=== PATIENT | male | born 1990 | race American Indian/Alaskan Native ===

== ENCOUNTER 2019-05-23 02:18 | Inpatient (IN) | payer OTHER ==
[2019-05-23] MEDS ORDERED: SODIUM CHLORIDE 0.9% 1000 ML 1,000 ML ONE (02:37)
[2019-05-23] MEDS ORDERED: SODIUM CHLORIDE 0.9% 1000 ML 1,000 ML IV ONE (03:01)
[2019-05-23] MEDS ORDERED: LORazepam 2 MG/ML VIAL IV STA (03:16)
[2019-05-23] MEDS ORDERED: ASPIRIN EC 325 MG TAB PO ONE (03:18)
--- NOTE | 2019-05-23 03:29 | Emergency Department Report ---
ED General Adult HPI - General Chief complaint: Overdose Stated complaint: POSS OVERDOSE Time Seen by Provider: 05/23/19 02:57 Source: patient, family Mode of arrival: Wheelchair Limitations: No Limitations - History of Present Illness Initial comments: 28-year-old male with no past medical history admits to doing meth as well as cocaine over the past 2 days. Patient states that he is having auditory hallucinations telling him that the grim reaper is trying to choke him. Patient however denies any suicidal or homicidal. Patient complains of chest pain that began while here in emergency department. Patient denies any radiation of this chest pain. Patient denies any heroin use. Patient denies any prior psychiatric history. Eyes any IV drug use and patient denies any fever. Patient states that his last use of cocaine/meth was at 12 am. - Related Data Allergies Allergy/AdvReac Type Severity Reaction Status Date / Time No Known Allergies Allergy Verified 05/23/19 03:07 ED Review of Systems ROS: Stated complaint: POSS OVERDOSE Other details as noted in HPI Constitutional: denies: chills, fever Eyes: denies: eye pain, eye discharge, vision change ENT: denies: ear pain, throat pain Respiratory: denies: cough, shortness of breath, wheezing Cardiovascular: chest pain Endocrine: no symptoms reported Gastrointestinal: denies: abdominal pain, nausea, diarrhea Genitourinary: denies: urgency, dysuria Musculoskeletal: denies: back pain, joint swelling, arthralgia Skin: denies: rash, lesions Neurological: denies: headache, weakness, paresthesias Psychiatric: auditory hallucinations Hematological/Lymphatic: denies: easy bleeding, easy bruising ED Past Medical Hx - Past Medical History Previous Medical History?: No - Surgical History Past Surgical History?: No - Social History Smoking Status: Current Every Day Smoker Substance Use Type: Alcohol, Cocaine, Marijuana, Methamphetamines ED Physical Exam - General Limitations: No Limitations General appearance: alert, other (animated; uncomfortable) - Head Head exam: Present: atraumatic, normocephalic - Eye Eye exam: Present: normal appearance - ENT ENT exam: Present: mucous membranes moist - Neck Neck exam: Present: normal inspection - Respiratory Respiratory exam: Present: normal lung sounds bilaterally. Absent: respiratory distress - Cardiovascular Cardiovascular Exam: Present: regular rate, normal rhythm. Absent: systolic murmur, diastolic murmur, rubs, gallop - GI/Abdominal GI/Abdominal exam: Present: soft, normal bowel sounds. Absent: guarding, rebound - Rectal Rectal exam: Present: deferred - Extremities Exam Extremities exam: Present: normal inspection - Back Exam Back exam: Present: normal inspection - Neurological Exam Neurological exam: Present: alert, oriented X3 - Psychiatric Psychiatric exam: Present: other (animated) - Skin Skin exam: Present: warm, dry, intact, normal color. Absent: rash ED Course Vital Signs 05/23/19 05/23/19 05/23/19 02:30 02:32 02:45 Temperature 97.8 F Pulse Rate 103 H 68 Respiratory 25 H 21 19 Rate Blood Pressure 156/95 Blood Pressure 152/98 [Right] O2 Sat by Pulse 98 99 Oximetry 05/23/19 05/23/19 05/23/19 03:00 03:16 03:30 Temperature Pulse Rate 69 63 63 Respiratory 23 20 16 Rate Blood Pressure 152/83 162/92 162/92 Blood Pressure [Right] O2 Sat by Pulse 100 100 100 Oximetry 05/23/19 05/23/19 05/23/19 03:46 04:00 04:16 Temperature Pulse Rate 63 61 69 Respiratory 20 15 17 Rate Blood Pressure 169/99 169/99 169/99 Blood Pressure [Right] O2 Sat by Pulse 98 100 Oximetry 05/23/19 05/23/19 05/23/19 04:30 04:46 05:00 Temperature Pulse Rate 79 89 76 Respiratory 24 28 H Rate Blood Pressure 169/99 126/63 Blood Pressure [Right] O2 Sat by Pulse Oximetry 05/23/19 05:46 Temperature Pulse Rate Respiratory Rate Blood Pressure 124/71 Blood Pressure [Right] O2 Sat by Pulse Oximetry ED Medical Decision Making - Lab Data Result diagrams: 05/23/19 04:15 05/23/19 04:15 - EKG Data EKG shows normal: sinus rhythm Rate: normal - EKG Data Interpretation: no acute changes - Medical Decision Making Patient received IV fluids and Ativan IV while here in emergency department. Patient also received aspirin therapy by mouth while in emergency department. With complaint of chest pain and recent ingestion of both cocaine and methamphetamine patient to be admitted to the hospitalist service for continued management and treatment. - Differential Diagnosis STEMI; NSTEMI; Dehydration; Anemia; Polysubstance Abuse Critical care attestation.: If time is entered above; I have spent that time in minutes in the direct care of this critically ill patient, excluding procedure time. ED Disposition Clinical Impression: Chest pain, Cocaine abuse, Methamphetamine abuse Disposition: OP ADMIT IP TO THIS HOSP Is pt being admited?: Yes Does the pt Need Aspirin: No (patient has already received Aspirin therapy in the ER) Condition: Stable Instructions: Chest Pain (ED) Referrals: PRIMARY CARE, [Primary Care Provider] - 3-5 Days Time of Disposition: 06:37 Print Language: MACEDONIAN
--- NOTE | 2019-05-23 03:36 | XRay Report ---
CHEST 1 VIEW INDICATION / CLINICAL INFORMATION: chset pain. COMPARISON: None available. FINDINGS: SUPPORT DEVICES: None. HEART / MEDIASTINUM: No significant abnormality. LUNGS / PLEURA: No significant pulmonary or pleural abnormality. No pneumothorax. ADDITIONAL FINDINGS: No significant additional findings. IMPRESSION: 1. No acute findings. Signer Name: Maribel Garrett MD Signed: 05/23/2019 3:32 AM Workstation Name: [id number]
[2019-05-23 04:42] LABS: Basophils % (Auto) 0.6 % (0.0-1.8); Eosinophils # (Auto) 0.1 K/mm3 (0.0-0.4); Eosinophils % (Auto) 1.4 % (0.0-4.3); Hemoglobin 14.8 gm/dl (11.8-15.2); Lymphocytes # (Auto) 1.9 K/mm3 (1.2-5.4); Lymphocytes % (Auto) 20.6 % (13.4-35.0); Mean Corpuscular HGB Conc 32 % (32-34); Mean Corpuscular Volume 85 fl (84-94); Monocytes # (Auto) 0.9 K/mm3 (0.0-0.8); Monocytes % (Auto) 10.3 % (0.0-7.3); Platelet Count 253 K/mm3 (140-440); Red Blood Count 5.42 M/mm3 (3.65-5.03); Red Cell Distribution Width 14.7 % (13.2-15.2)
[2019-05-23 04:54] LABS: Benzodiazepines Screen,Urine PRESUMPTIVE NEGATIVE; Methadone Screen,Urine PRESUMPTIVE NEGATIVE; Opiate Screen,Urine PRESUMPTIVE NEGATIVE
[2019-05-23 04:57] LABS: Alanine Aminotransferase 17 units/L (7-56); Albumin 4.8 g/dL (3.9-5); BUN/Creatinine Ratio 13; Blood Urea Nitrogen 12 mg/dL (9-20); Calcium 9.5 mg/dL (8.4-10.2); Hemolysis Index 5
[2019-05-23 05:09] LABS: Amphetamine Screen,Urine PRESUMPTIVE POSITIVE; Cannabinoid Screen,Urine PRESUMPTIVE POSITIVE; Cocaine Screen,Urine PRESUMPTIVE POSITIVE
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
--- NOTE | 2019-05-23 09:03 | History and Physical Report ---
History of Present Illness Date of examination: 05/23/19 Date of admission: 05/23/19 06:38 Chief complaint: alteration of behaviour and chest pain History of present illness: 28-year-old male with no past medical history admits to doing methadone as well as cocaine over the past 2 days. Patient states that he is having auditory hallucinations telling him that the grim reaper is trying to choke him. Patient however denies any suicidal or homicidal. Patient complained of chest pain that began while here in emergency department w/o any radiation of this chest pain. Patient denies any heroin use. Patient denies any prior psychiatric history. Family was brought to the emergency by the family members. Patient is being admitted for further evaluation and management. He currently denies any chest pain, cardiac enzyme in the ER was negative and chest x-ray did not show any infiltrates. Review of System: Constitutional: no fever, no chills, no weight loss Ears, eyes, nose, mouth and throat: no nasal congestion, no nasal discharge, no sinus pressure, no vision change, no red eye. Neck: No neck pain or rigidity. Cardiovascular: No chest pain, no orthopnea, no palpitations, no leg swelling Respiratory: No shortness of breath, no cough, no congestion, no wheezing Gastrointestinal: no abdominal pain, no nausea, no vomiting Genitourinary : no dysuria, no hematuria Musculoskeletal: no joint swelling or muscle ache Integumentary: no rash, no pruritis Neurological: no parathesias, no numbness, no tingling Endocrine: no cold or heat intolerance, no polyuria or polydipsia Hematologic/Lymphatic: no easy bruising, no easy bleeding, no gland swelling Allergic/Immunologic: no urticaria, no angioedema. Past History Past Medical History: No medical history Past Surgical History: No surgical history Social history: smoking, alcohol abuse, other (cocaine abuse) Family history: no significant family history Medications and Allergies Allergies Allergy/AdvReac Type Severity Reaction Status Date / Time No Known Allergies Allergy Verified 05/23/19 03:07 Home Medications Medication Instructions Recorded Confirmed Last Taken Type hydrOXYzine PAMOATE [Vistaril] 25 mg PO BID #14 capsule 05/25/19 Unknown Rx risperiDONE [RisperDAL] 1 mg PO QHS #7 tablet 05/25/19 Unknown Rx Exam - Constitutional Vitals: Temp Pulse Resp BP Pulse Ox 97.8 F 75 18 133/78 100 05/23/19 02:32 05/23/19 07:52 05/23/19 07:52 05/23/19 07:52 05/23/19 04:00 General appearance: Present: well-nourished, other (appears drowsy) - EENT Eyes: Present: PERRL ENT: hearing intact, clear oral mucosa - Neck Neck: Present: supple, normal ROM - Respiratory Respiratory effort: normal Respiratory: bilateral: CTA - Cardiovascular Heart Sounds: Present: S1 & S2. Absent: rub, click - Extremities Extremities: pulses symmetrical, No edema Peripheral Pulses: within normal limits - Abdominal General gastrointestinal: Present: soft, non-tender, non-distended, normal bowel sounds - Integumentary Integumentary: Present: clear, warm, dry - Musculoskeletal Musculoskeletal: gait normal, strength equal bilaterally - Psychiatric Psychiatric: no appropriate mood/affect, no intact judgment & insight, cooperative - Neurologic Neurologic: CNII-XII intact, moves all extremities Results - Labs CBC & Chem 7: 05/23/19 04:15 05/23/19 04:15 Labs: Abnormal lab results 05/23/19 05/23/19 05/23/19 Range/Units 04:15 04:15 04:15 RBC 5.42 H (3.65-5.03) M/mm3 Hct 46.0 H (35.5-45.6) % MCH 27 L (28-32) pg [place] % (Auto) 10.3 H (0.0-7.3) % [place] # 0.9 H (0.0-0.8) K/mm3 Potassium 3.4 L (3.6-5.0) mmol/L Total Creatine Kinase (55-170) units/L Salicylates < 0.3 L (2.8-20.0) mg/dL Acetaminophen (10.0-30.0) ug/mL 05/23/19 05/23/19 Range/Units 04:15 04:15 RBC (3.65-5.03) M/mm3 Hct (35.5-45.6) % MCH (28-32) pg [place] % (Auto) (0.0-7.3) % [place] # (0.0-0.8) K/mm3 Potassium (3.6-5.0) mmol/L Total Creatine Kinase 293 H (55-170) units/L Salicylates (2.8-20.0) mg/dL Acetaminophen < 5.0 L (10.0-30.0) ug/mL - Imaging and Cardiology Chest x-ray: report reviewed Assessment and Plan Acute psychosis - psych consulted, likely from substance abuse - xanax as needed Cocaine/Marijuana/Methamphetamine/ Alcohol Use Disorder - monitor clinically, placed on CIWA protocol Chest pain, atypical - likely from cocaine, monitor with serial CE, serial EKG DVT Px - SCD
[2019-05-23] MEDS ORDERED: MORPHINE 2 MG/1 ML INJ IV ONE (11:43)
[2019-05-23] MEDS ORDERED: LORazepam 2 MG/ML VIAL IV ONE (11:44)
[2019-05-23] MEDS ORDERED: hydrALAZINE 20 MG/1 ML INJ IV PRN (14:04)
[2019-05-23] MEDS ORDERED: LORazepam 2 MG/ML VIAL IV PRN (14:30)
[2019-05-23] MEDS ORDERED: ONDANSETRON 4 MG/2 ML INJ IV PRN (14:30)
[2019-05-23] MEDS ORDERED: ACETAMINOPHEN 325 MG TAB PO PRN (14:30)
[2019-05-23] MEDS: ALPRAZolam 0.5 MG TAB PO PRN ×2 (17:36→21:55)
[2019-05-23] MEDS: FAMOTIDINE 10 MG TAB PO SCH (21:54)
[2019-05-23] MEDS: DOCUSATE SODIUM 100 MG CAP PO SCH (21:54)
[2019-05-24] MEDS: ALPRAZolam 0.5 MG TAB PO PRN (05:41)
[2019-05-24] MEDS: FAMOTIDINE 10 MG TAB PO SCH ×2 (10:19→21:38)
[2019-05-24] MEDS: DOCUSATE SODIUM 100 MG CAP PO SCH ×2 (10:19→21:38)
--- NOTE | 2019-05-24 13:49 | Progress Note ---
Subjective - Reason for Consult Consult date: 05/24/19 Reason for consult: Psychiatric Follow-up Evaluation - Chief Complaint Chief complaint: " I feel better than yesterday" Patient is a 28-year-old male with no past medical history. He is here due to methamphetamine and cocaine use x 2 days. Today the patient is calm and cooperative during the assessment. He reports fair appetite and sleep. He denies SI/HI, A/VH's, and delusions. He later endorses intermittent psychosis at night but could not further explain. Mental Status Exam - Vital signs Last Vital Signs Temp 97.7 F 05/24/19 11:25 Pulse 85 05/24/19 11:25 Resp 18 05/24/19 11:25 BP 107/67 05/24/19 11:25 Pulse Ox 99 05/24/19 11:25 - Exam Narrative exam: Mental Status Exam Appearance: cooperative, poorly groomed Behavior: intermittent eye contact Speech: regular rate with and tone Mood: "I feel better than yesterday" Affect: congruent to mood Thought Process: impoverished, circumstantial Thought Content: no gestures SI/HI's, delusions; intermittent A/VH's Cognition: A/O x 3 Insight: variable Judgment: variable Assessment and Plan Impression: Cocaine/Marijuana/Methamphetamine/ Alcohol Use Disorder. Drug Induced Psychosis. Today the patient is cooperative but anxious during the assessment. He endorses intermittent auditory hallucinations. Recommendation/Plan: 1. Will reassess in 24 hours. 2. Recommend [facility] protocol for possible alcohol withdrawals. 3. Start Risperdal 1mg po QHS psychosis/mood, Vistaril 25mg po BID anxiety. Discussed metabolic/anti-cholinergic side effects. Patient verbalizes understanding. Disposition: Will reassess in 24 hours for medication management. Will staff with Dr. Lucian Langston.
--- NOTE | 2019-05-24 15:02 | Progress Note ---
Assessment and Plan Acute psychosis - psych consulted, likely from substance abuse - cont he xanax as needed Cocaine/Marijuana/Methamphetamine/ Alcohol Use Disorder - monitor clinically, CIWA protocol Chest pain, atypical - likely from cocaine, serial CE, serial EKG DVT Px - SCD Disposition: Appears more calm and quiet today, but still remains intermittently psychotic. Fluid for further psychiatric recommendation for discharge planning Subjective Date of service: 05/24/19 Interval history: Patient seen and examined. Medical records and medication list reviewed. No acute event overnight noted by the RN. Patient denies any chest pain or difficulty breathing. Patient is tolerating diet. He reports fair appetite and sleep. He denies SI/HI, A/VH's, and delusions. He later endorses intermittent psychosis at night but could not further explain. Discussed plan of care at bedside with patient. Objective - Constitutional Vitals: Vital Signs - 12hr 05/24/19 05/24/19 05/24/19 03:35 03:56 08:13 Temperature 97.9 F 98.1 F Pulse Rate 95 H 73 58 L Respiratory 18 18 Rate Blood Pressure 141/77 88/48 O2 Sat by Pulse 99 99 Oximetry 05/24/19 05/24/19 05/24/19 08:14 11:00 11:25 Temperature 97.7 F Pulse Rate 85 85 Respiratory 18 Rate Blood Pressure 81/57 107/67 O2 Sat by Pulse 99 Oximetry General appearance: Present: no acute distress, well-nourished - EENT Eyes: PERRL, EOM intact ENT: hearing intact, clear oral mucosa Ears: bilateral: normal - Neck Neck: supple, normal ROM - Respiratory Respiratory effort: normal Respiratory: bilateral: CTA - Cardiovascular Rhythm: regular Heart Sounds: Present: S1 & S2. Absent: gallop, rub Extremities: pulses intact, No edema, normal color, Full ROM - Gastrointestinal General gastrointestinal: Present: soft, non-tender, non-distended, normal bowel sounds - Integumentary Integumentary: clear, warm, dry - Musculoskeletal Musculoskeletal: 1, strength equal bilaterally - Neurologic Neurologic: moves all extremities - Psychiatric Psychiatric: memory intact, appropriate mood/affect, intact judgment & insight - Labs CBC & Chem 7: 05/23/19 04:15 05/23/19 04:15
[2019-05-24] MEDS: hydrOXYzine PAMOATE 25 MG CAP PO SCH (21:38)
[2019-05-24] MEDS ORDERED: risperiDONE 1 MG TAB PO SCH (22:00)
[2019-05-25] MEDS: hydrOXYzine PAMOATE 25 MG CAP PO SCH (10:06)
[2019-05-25] MEDS: FAMOTIDINE 10 MG TAB PO SCH (10:06)
[2019-05-25] MEDS: DOCUSATE SODIUM 100 MG CAP PO SCH (10:06)
--- NOTE | 2019-05-25 13:43 | Progress Note ---
Subjective - Reason for Consult Consult date: 05/25/19 Reason for consult: Psychiatric Follow-up Evaluation - Chief Complaint Chief complaint: " I feel good" Patient is a 28-year-old male with no past medical history. He is here due to methamphetamine and cocaine use x 2 days. Today the patient is calm and cooperative during the assessment. Patient is asleep in the room. He reports good appetite and sleep. He denies SI/HI's, A/VH's, and delusions. Patient reports that he has been compliant with medication. He believes that the medication is partially effective. He denies any side effects noted. Mental Status Exam - Vital signs Last Vital Signs Temp 98.1 F 05/25/19 04:14 Pulse 85 05/25/19 08:52 Resp 16 05/25/19 08:43 BP 109/71 05/25/19 08:52 Pulse Ox 100 05/25/19 08:52 - Exam Narrative exam: Mental Status Exam Appearance: calm, cooperative Behavior: intermittent eye contact Speech: regular rate with and tone Mood: "I feel good" Affect: congruent to mood Thought Process: organized Thought Content: no gestures SI/HI's, A/VH's delusions Cognition: A/O x 3 Insight: variable Judgment: variable Assessment and Plan Impression: Cocaine/Marijuana/Methamphetamine/ Alcohol Use Disorder. Drug Induced Psychosis. Today the patient is calm and cooperative during the assessment. He denies SI/HI's, A/VH's, and delusions. Recommendation/Plan: 1. Will reassess in 24 hours. 2. Recommend [facility] protocol for possible alcohol withdrawals. 3. Continue Risperdal 1mg po QHS psychosis/mood, Vistaril 25mg po BID anxiety. Discussed metabolic/anti-cholinergic side effects. Patient verbalizes understanding. Disposition: Will reassess in 24 hours for medication management. Patient informed to follow-up at the [facility] upon discharge for psychiatric services. Patient verbalizes understanding. Will staff with Dr. Lucian Langston.
--- NOTE | 2019-05-25 16:09 | Discharge Summary ---
Providers - Providers Date of Admission: 05/23/19 06:38 Date of discharge: 05/25/19 Attending physician: MARIBEL MORALES 05/23/19 14:03 Consult to Mental Health [CONS] Routine Reason For Exam: acute psychosis Place consult to:: mental health Notified:: yes Primary care physician: [employer] Hospitalization Condition: Stable Pertinent studies: Chest x-ray: No infiltrates Hospital course: 28-year-old male with no past medical history who was doing methadone as well as cocaine over the past 2 days presented with auditory hallucinations and chest pain. Patient denied any prior psychiatric history. Patient was brought to the emergency by the family members. His UDS was positive for methamphetamine, cocaine and marijuana. Patient was admitted for further evaluation and management. His chest pain resolved, cardiac enzyme in the ER was negative and chest x-ray did not show any infiltrates. Patient was placed on 1013, psych was consulted. Patient improved with medical management,. Psych recommended outpatient follow-up, patient was discharged home in stable condition. Family and patient was counseled for outpatient drug rehabilitation. Discharge Diagnosis: Acute psychosis - drug induced, resolved - psych consulted, likely from substance abuse - given xanax as needed Cocaine/Marijuana/Methamphetamine/ Alcohol Use Disorder - monitored clinically, placed on CIWA protocol Chest pain, atypical - likely from cocaine, negative serial CE, serial EKG DVT Px - SCD Disposition: home with outpt f/u Disposition: DC-01 TO HOME OR SELFCARE Time spent for discharge: 34 minutes Core Measure Documentation - Palliative Care Palliative Care/ Comfort Measures: Not Applicable - Core Measures Any of the following diagnoses?: none Exam - Constitutional Vitals: Temp Pulse Resp BP Pulse Ox 98.1 F 55 L 16 102/59 96 05/25/19 04:14 05/25/19 13:45 05/25/19 08:43 05/25/19 13:45 05/25/19 13:45 General appearance: Present: no acute distress, well-nourished - EENT Eyes: Present: PERRL ENT: hearing intact, clear oral mucosa - Neck Neck: Present: supple, normal ROM - Respiratory Respiratory effort: normal Respiratory: bilateral: CTA - Cardiovascular Heart Sounds: Present: S1 & S2. Absent: rub, click - Extremities Extremities: pulses symmetrical, No edema Peripheral Pulses: within normal limits - Abdominal General gastrointestinal: Present: soft, non-tender, non-distended, normal bowel sounds - Integumentary Integumentary: Present: clear, warm, dry - Musculoskeletal Musculoskeletal: gait normal, strength equal bilaterally - Psychiatric Psychiatric: appropriate mood/affect, intact judgment & insight - Neurologic Neurologic: CNII-XII intact, moves all extremities Plan Activity: advance as tolerated Weight Bearing Status: Weight Bear as Tolerated Diet: low fat, low salt Special Instructions: follow up in rehab (outpatient alcohol and drug rehabilitation program) Additional Instructions: f/u at outpatient alcohol and drug rehabilitation program. Follow up with: PRIMARY CARE, [Primary Care Provider] - 3-5 Days BREANNA BARLOW MD [Staff Physician] - 7 Days Prescriptions: risperiDONE [RisperDAL] 1 mg PO QHS #7 tablet hydrOXYzine PAMOATE [Vistaril] 25 mg PO BID #14 capsule
[2019-05-25 17:53] VITALS: BP 106/66
== END 2019-05-25 19:07 | disposition home or self-care (01) | DRG 897 ==
LOC: ED 02:18 → 4A 06:38
PROVIDERS: ADMIT Internal Medicine Geriatric Medicine; ATTEND Internal Medicine
DX: F19.159 Other psychoactive substance abuse with psychoactive substance-induced psychotic disorder, unspecified (principal); R07.89 Other chest pain; F12.90 Cannabis use, unspecified, uncomplicated; F14.90 Cocaine use, unspecified, uncomplicated; F17.200 Nicotine dependence, unspecified, uncomplicated; F15.90 Other stimulant use, unspecified, uncomplicated; Z72.89 Other problems related to lifestyle
CPT/HCPCS: 36415; 71045; 80053; 80307; 80320; 82550; 84484; 85025; 93005; 93010; 96374; G0378; G0480; J2060; J7030; Q0177